=== PATIENT | male | born 1950 | race Caucasian/White ===

== ENCOUNTER → 2021-04-22 | Outpatient (CLI) | payer MEDICARE, BC ==
[~2021-04-22] MED LIST: AMARYL 2MG TABLE2 MG PO; ASPIRIN81 MG PO; COREG 25MG TAB25 MG PO; DOXEPIN HCL100 MG PO; GABAPENTIN100 MG PO; HYDROCODON-ACE1 EAC4 PO; LISINOPRIL-HCT1 EAC1 PO; MAXIMUM DAILY1 EAC1 PO; PRAVACHOL20 MG PO; PROTONIX40 M1 PO; VITAMIN B-121000 MCG PO
== END ==
LOC: KOH-I 13:21
DX: R06.02 Shortness of breath (principal); J90 Pleural effusion, not elsewhere classified
CPT/HCPCS: 71046

== ENCOUNTER 2021-06-01 13:36 | Inpatient (IN) | payer MEDICARE, BC ==
[~2021-06-01] VITALS: Ht 177.8 cm; Wt 127.9 kg
[~2021-06-01 13:36] MED LIST changes: -GABAPENTIN100 MG PO; +GABAPENTIN300 MG PO; -PRAVACHOL20 MG PO; +PRAVASTATIN SOD40 MG PO
[2021-06-01 14:47] LABS: RED BLOOD COUNT 1.75 M/UL (4.20-5.50); WHITE BLOOD COUNT 10.1 K/UL (4.5-11.0)
[2021-06-01 14:50] LABS: HEMOGLOBIN 5.3 gm/dl (14.0-17.5)
[2021-06-01] MEDS ORDERED: MULTIVITAMIN1 EACH PO (16:32)
[2021-06-01] MEDS ORDERED: ELIQUIS5 MG PO (16:33)
[2021-06-01] MEDS ORDERED: DOXEPIN HCL100 MG PO (16:33)
[2021-06-01] MEDS ORDERED: ARTHRITIS PAIN650 M1 PO (16:34)
[2021-06-02 08:04] LABS: WHITE BLOOD COUNT 8.2 K/UL (4.5-11.0)
[2021-06-02 08:06] LABS: RED BLOOD COUNT 2.39 M/UL (4.20-5.50)
[2021-06-02 08:07] LABS: HEMOGLOBIN 6.6 gm/dl (14.0-17.5)
[2021-06-03 04:23] LABS: HEMOGLOBIN 8.5 gm/dl (14.0-17.5); WHITE BLOOD COUNT 7.8 K/UL (4.5-11.0)
[2021-06-04 04:50] LABS: HEMOGLOBIN 7.8 gm/dl (14.0-17.5); RED BLOOD COUNT 2.82 M/UL (4.20-5.50); WHITE BLOOD COUNT 7.8 K/UL (4.5-11.0)
[2021-06-05 03:53] LABS: HEMOGLOBIN 8.7 gm/dl (14.0-17.5); RED BLOOD COUNT 3.02 M/UL (4.20-5.50); WHITE BLOOD COUNT 7.2 K/UL (4.5-11.0)
[2021-06-05 08:12] LABS: OSMOLALITY, URINE 532 (.)
[2021-06-05 09:13] LABS: CREATININE, URINE 65.9 mg/dL (Not Estab.)
[2021-06-05] MEDS ORDERED: MEDROL TAB 4 MG4 MG PO (12:02)
[2021-06-05] MEDS ORDERED: FERROUS SULFAT325 M2 PO (12:02)
[2021-06-05] MEDS ORDERED: AZITHROMYCIN250 MG PO (12:02)
[2021-06-05 16:13] LABS: ORGANISM ID Not indicated. (.); SPECIMEN SOURCE Urine (.); STREPTOCOCCUS PNEUMONIAE AG Negative (Negative)
== END 2021-06-05 16:10 | disposition home or self-care (01) | DRG 377 ==
LOC: ER1 13:36 → PROG CARE 15:43 → CDU 15:43 → PROG CARE 17:55
PROVIDERS: Emergency Medicine; Internal Medicine; Physician Assistant Medical; ADMIT Internal Medicine
PROC: 3E033XZ Introduction of Vasopressor into Peripheral Vein, Percutaneous Approach (ICD-10-PCS; principal; 2021-06-01)
PROC: 30233N1 Transfusion of Nonautologous Red Blood Cells into Peripheral Vein, Percutaneous Approach (ICD-10-PCS; 2021-06-01)
PROC: 0DB78ZX Excision of Stomach, Pylorus, Via Natural or Artificial Opening Endoscopic, Diagnostic (ICD-10-PCS; 2021-06-03)
PROC: 0DBM8ZX Excision of Descending Colon, Via Natural or Artificial Opening Endoscopic, Diagnostic (ICD-10-PCS; 2021-06-04)
DX: K29.01 Acute gastritis with bleeding (principal); J18.9 Pneumonia, unspecified organism; N17.0 Acute kidney failure with tubular necrosis; Z20.822 Contact with and (suspected) exposure to COVID-19; R57.8 Other shock; E87.1 Hypo-osmolality and hyponatremia; K76.6 Portal hypertension; D62 Acute posthemorrhagic anemia; Z68.42 Body mass index [BMI] 45.0-49.9, adult; K26.0 Acute duodenal ulcer with hemorrhage; M10.9 Gout, unspecified; D69.6 Thrombocytopenia, unspecified; D63.1 Anemia in chronic kidney disease; E87.5 Hyperkalemia; E66.01 Morbid (severe) obesity due to excess calories; K57.30 Diverticulosis of large intestine without perforation or abscess without bleeding; I12.9 Hypertensive chronic kidney disease with stage 1 through stage 4 chronic kidney disease, or unspecified chronic kidney disease; E11.42 Type 2 diabetes mellitus with diabetic polyneuropathy; N18.31 Chronic kidney disease, stage 3a; K64.8 Other hemorrhoids; K64.4 Residual hemorrhoidal skin tags; K70.30 Alcoholic cirrhosis of liver without ascites; I25.10 Atherosclerotic heart disease of native coronary artery without angina pectoris; K21.9 Gastro-esophageal reflux disease without esophagitis; I85.00 Esophageal varices without bleeding; K76.0 Fatty (change of) liver, not elsewhere classified; J20.9 Acute bronchitis, unspecified; K63.5 Polyp of colon; E11.22 Type 2 diabetes mellitus with diabetic chronic kidney disease; E78.5 Hyperlipidemia, unspecified; E03.9 Hypothyroidism, unspecified; F32.A Depression, unspecified; F10.10 Alcohol abuse, uncomplicated; I48.0 Paroxysmal atrial fibrillation; Z79.01 Long term (current) use of anticoagulants; Z90.49 Acquired absence of other specified parts of digestive tract; Z79.4 Long term (current) use of insulin
CPT/HCPCS: 0240U; 36415; 71045; 80048; 80053; 81001; 82043; 82270; 82436; 82550; 82553; 82570; 82607; 82728; 82962; 83540; 83550; 83605; 83735; 83874; 83880; 83935; 84100; 84133; 84156; 84300; 84484; 85018; 85025; 85027; 85379; 85610; 85652; 86140; 86850; 86900; 86901; 86920; 87040; 87278; 87899; 96374; 96375; 99285; C9113; J0456; J0696; J1756; J2001; J2704; J7030; J7040; J7050; P9016

== ENCOUNTER 2021-06-19 18:10 | Emergency (ER) | payer MEDICARE, BC ==
[~2021-06-19 18:10] MED LIST changes: +ARTHRITIS PAIN650 M1 PO; +AZITHROMYCIN250 MG PO; +ELIQUIS5 MG PO; +FERROUS SULFAT325 M2 PO; +MEDROL TAB 4 MG4 MG PO; +MULTIVITAMIN1 EACH PO
== END 2021-06-19 19:27 | disposition home or self-care (01) ==
LOC: ER1 18:10
DX: M25.562 Pain in left knee (principal); M25.561 Pain in right knee; E11.9 Type 2 diabetes mellitus without complications; I13.0 Hypertensive heart and chronic kidney disease with heart failure and stage 1 through stage 4 chronic kidney disease, or unspecified chronic kidney disease; I50.9 Heart failure, unspecified; E78.5 Hyperlipidemia, unspecified
CPT/HCPCS: 99283